=== PATIENT | male | born 1950 | race Caucasian/White ===

== ENCOUNTER 2023-02-19 00:30 | Outpatient (CLI) | payer OTHER, SELFPAY ==
--- NOTE | 2023-02-19 | DI.RAD_ITS ---
Exam(s) XR LUMBAR SPINE COMPLETE EXAM: XR LUMBAR SPINE COMPLETE CLINICAL HISTORY: AUTH# [id number] LOW BACK PAIN M54.50 WITH BILAT RADICULOPATHY. TECHNIQUE: 2D digital imaging was performed. Five views. COMPARISON: No exams were available for comparison FINDINGS: BONES: No fracture or destructive lesion. Vertebral body heights are maintained. facet hypertrophy identified from L3-4 through L5-S1.. No spondylolysis. DISKS: Severe narrowing of the L5-S1 disc space. The remaining disc spaces are maintained. ALIGNMENT: Lumbar spinal alignment is within normal limits. SOFT TISSUE: Normal. IMPRESSION: Severe degenerative disc changes at L5-S1. DATA REPOSITORY: RADIATION DOSE DELIVERED:
--- NOTE | 2023-02-19 | DI.RAD_ITS ---
Exam(s) XR KNEE RT 3V AP,LAT,LAM EXAM: XR KNEE RT 3V AP,LAT,LAM CLINICAL HISTORY: AUTH# [id number] BILAT KNEE PAIN M25.569. TECHNIQUE: 2D digital imaging was performed. Three views. COMPARISON: No exams were available for comparison FINDINGS: BONES: No acute fracture is present. No bony destructive lesion is seen. There is an enthesophyte a t the quadriceps insertion. JOINTS: Narrowing of the medial femoral tibial joint space seen on the weight-bearing view. Mild per iarticular spurring noted, greatest at the patella. Joint effusion is present. SOFT TISSUE: Normal. IMPRESSION: Impression moderate to severe degenerative changes of the medial femoral tibial joint. DATA REPOSITORY: RADIATION DOSE DELIVERED:
--- NOTE | 2023-02-19 | DI.RAD_ITS ---
Exam(s) XR KNEE LT 3V AP,LAT,LAM EXAM: XR KNEE LT 3V AP,LAT,LAM CLINICAL HISTORY: AUTH# [id number] BILAT KNEE PAIN M25.569. TECHNIQUE: 2D digital imaging was performed. Three views. COMPARISON: CR XR KNEE RT 3V AP,LAT,LAM from 02/19/2023 FINDINGS: BONES: No acute fracture is present. No bony destructive lesion is seen. Mild periarticular spurri ng greatest at the patella. Small enthesophyte at quadriceps insertion. JOINTS: The knee is normally aligned. No joint effusion is seen. SOFT TISSUE: Normal. IMPRESSION: Minimal degenerative changes. DATA REPOSITORY: RADIATION DOSE DELIVERED:
== END 2023-02-19 00:50 ==
PROVIDERS: PCP Family Medicine; Visit Provider Physician Assistant
DX: M47.27 Other spondylosis with radiculopathy, lumbosacral region (principal)
CPT/HCPCS: 73562; 72110

== ENCOUNTER 2023-06-14 11:15 | Outpatient (CLI) | payer OTHER, SELFPAY ==
--- NOTE | 2023-06-14 09:45 | DI.RAD_ITS ---
Exam(s) XR HIP PELVIS ADULT BL EXAM: XR HIP PELVIS ADULT BL CLINICAL HISTORY: hip pain. TECHNIQUE: 2D digital imaging was performed. COMPARISON: No exams were available for comparison FINDINGS: 3 views No evidence of pelvic nor hip fracture. However, there is severe advanced degenerative narrowing of the left hip with limitation the joint space superiorly and degenerative subarticular cysts on both s ides the joint. There are also moderate degenerative changes in the opposite-right hip. IMPRESSION: Significant osteoarthritic of the hips bilaterally, more severe on the left side. DATA REPOSITORY: RADIATION DOSE DELIVERED:
== END 2023-06-14 11:16 | disposition home or self-care (01) ==
LOC: DIORS 11:15
PROVIDERS: PCP Family Medicine; Visit Provider Physician Assistant
DX: M16.0 Bilateral primary osteoarthritis of hip (principal)
CPT/HCPCS: 73521

== ENCOUNTER 2023-06-16 03:12 | Outpatient (CLI) | payer OTHER, SELFPAY ==
[2023-06-16 13:40] LABS: HCT 41.8 % (40.0-50.0); HGB 13.7 g/dL (13.5-17.5); MCH 27.4 pg (27.0-33.0); MCHC 32.8 % (32.0-36.0); MCV 84 fL (80-95); MPV 8.9 fL (8.0-11.0); Platelet Count 206 10^3/uL (130-400); RDW 13.7 % (11.8-14.1); RDW-SD 41.8 fL; WBC 5.85 10^3/uL (4.4-10.8)
[2023-06-16 14:05] LABS: Anion Gap 6.9 mmol/L (3-11); BUN 25 mg/dL (7-18); CO2 29.1 mmol/L (21.0-32.0); Calcium 9.3 mg/dL (8.5-10.1); Chloride 105 mmol/L (98-107); Estimated GFR 79.47 (mL/min/1.73m2); Glucose 133 mg/dL (74-106); Sodium 141 mmol/L (136-145)
== END 2023-06-16 03:13 | disposition home or self-care (01) ==
LOC: LBO 03:13
PROVIDERS: Absent Provider Student in an Organized Health Care Education/Training Program; PCP Family Medicine; Visit Provider Student in an Organized Health Care Education/Training Program
DX: M16.12 Unilateral primary osteoarthritis, left hip (principal); M25.552 Pain in left hip; Z01.818 Encounter for other preprocedural examination; Z01.812 Encounter for preprocedural laboratory examination
CPT/HCPCS: 36415; 80048; 85027

== ENCOUNTER 2023-06-22 05:47 | Day surgery (SDC) | payer OTHER, SELFPAY ==
[2023-06-22] VITALS (12 sets, daily range): BP systolic 116–137; BP diastolic 60–86; PULSE 58–79; RESP 15–18; TEMP 36.1–36.5; O2SAT 96–98; BMI 25.7
[2023-06-22] MEDS: Acetaminophen 500 MG TAB 1000 MG PO (06:35)
[2023-06-22] MEDS: Celecoxib 200 MG CAP 400 MG PO (06:35)
[2023-06-22] MEDS: Lactated Ringers 1,000 ML 80 ML IV (07:00)
--- NOTE | 2023-06-22 07:13 | W.ANESPRE ---
General Info Date of Service Date Performed: 06/22/23 Height: 6 ft Weight: 86.183 kg Body Mass Index (BMI): 25.7 Surgical Procedure: Operation Date: 06/22/23 07:50 Proposed Procedure Side Surgeon p Hip Total Hip Anterior, ACTIS Left Brad Benites MD Meds Allergies and Home Medications Allergies Allergy/AdvReac Type Severity Reaction Status Date / Time amlodipine Allergy Unknown Verified 06/22/23 06:11 lisinopril Allergy Unknown Verified 06/22/23 06:11 Sulfa (Sulfonamide Allergy Unknown Verified 06/22/23 06:11 Antibiotics) duloxetine AdvReac Severe Other (See Unverified 06/22/23 06:11 Comment) Home Medication Medication Instructions Recorded melatonin 5 mg capsule 5 mg PO HS 03/11/23 meloxicam 15 mg tablet 15 mg PO DAILY 03/11/23 terazosin 2 mg capsule 2 mg PO QHS 03/11/23 Current Visit Medications: Current Medications Generic Name Dose Route Start Last Admin Trade Name Freq PRN Reason Stop Dose Admin Acetaminophen 1,000 mg 06/22/23 06:00 06/22/23 06:35 Acetaminophen 500 Mg Tab PO 07/22/23 05:59 1,000 mg PREOP GABINO Administration Celecoxib 400 mg 06/22/23 06:00 06/22/23 06:35 Celecoxib 200 Mg Cap PO 07/22/23 05:59 400 mg PREOP GABINO Administration Tranexamic Acid 1,000 mg/ 60 mls @ 360 mls/hr 06/22/23 06:00 Sodium Chloride IV 07/22/23 05:59 PREOP GABINO Ringer's Solution 1,000 mls @ 80 mls/hr 06/22/23 06:00 06/22/23 07:00 IV 07/21/23 23:59 80 mls/hr INFUSION GABINO Administration Cefazolin Sodium/Dextrose 2 gm in 50 mls @ 100 mls/hr 06/22/23 06:00 Ancef Duplex IVPB 07/21/23 23:59 PREOP GABINO IV Miscellaneous Supplies 1 each 06/22/23 06:00 Iv Access IV 07/21/23 23:59 DIRECTED GABINO Sodium Chloride 0 ml 06/22/23 06:00 Normal Saline Flush 10 Ml Syr IV 07/21/23 23:59 PRN PRN Sodium Chloride 0 ml 06/22/23 06:00 Normal Saline 10 Ml Vial IJ 07/21/23 23:59 DIRECTED PRN Sterile Water 0 ml 06/22/23 06:00 Water,Injection,Sterile 10 Ml Vial IJ 07/21/23 23:59 DIRECTED PRN PFSH Active Problems Active Problems: Problem Status Onset Code HTN (hypertension) I10 BPH (benign prostatic hyperplasia) N40.0 JERRI (obstructive sleep apnea) G47.33 Primary osteoarthritis of left hip M16.12 Primary osteoarthritis of right knee M17.11 Surgical History Surgical History (Updated 06/22/23 @ 06:15 by Marilin Felder) Hx of foot surgery L big toe Hx of hand surgery Hx of tonsillectomy Tobacco Smoking/Tobacco Use Status: Current-Occasional Tobacco Type: cigars Alcohol Alcohol Intake: current Alcohol intake frequency: holidays/special occasions only Substance Use Substance use: Never Substance use type: does not use Details: beer occasionally Vital Signs and Lab Results Vital Signs Most Recent Vital Signs in EMR: Most Recent Vital Signs Temp Pulse Resp BP Pulse Ox 36.4 C L 79 18 137/84 98 06/22/23 06:41 06/22/23 06:41 06/22/23 06:41 06/22/23 06:41 06/22/23 06:41 Lab Results Blood Type / Crossmatch: No Data to Display Complete Blood Count: White Blood Count 5.85 10^3/uL (4.4-10.8) 06/16/23 13:34 Red Blood Count 5.00 10^6/uL (4.36-5.78) 06/16/23 13:34 Hemoglobin 13.7 g/dL (13.5-17.5) 06/16/23 13:34 Hematocrit 41.8 % (40.0-50.0) 06/16/23 13:34 Platelet Count 206 10^3/uL (130-400) 06/16/23 13:34 Complete Metabolic Panel: Sodium 141 mmol/L (136-145) 06/16/23 13:34 Potassium 4.0 mmol/L (3.5-5.1) 06/16/23 13:34 Chloride 105 mmol/L (98-107) 06/16/23 13:34 Carbon Dioxide 29.1 mmol/L (21.0-32.0) 06/16/23 13:34 BUN 25 mg/dL (7-18) H 06/16/23 13:34 Creatinine 1.0 mg/dL (0.70-1.30) 06/16/23 13:34 Est GFR (CKD-EPI 2020) 79.47 (mL/min/1.73m2) 06/16/23 13:34 Calcium 9.3 mg/dL (8.5-10.1) 06/16/23 13:34 Glucose 133 mg/dL (74-106) H 06/16/23 13:34 Liver Function Panel: No Data to Display Coagulation Panel: No Data to Display Cardiac Panel: No Data to Display Arterial Blood Gas: No Data to Display Venous Blood Gas: No Data to Display Pancreas Panel: No Data to Display Thyroid Panel: No Data to Display Infectious Disease: No Data to Display Blood Cultures: No Data to Display Toxicology Panel: No Data to Display Anesthesia Assessment and Plan Anesthesia History Personal History: No History of Anesthesia Complications Family History: No Family History of Anesthesia Complications Exercise Tolerance Exercise Tolerance: Metabolic Equivalents<4 Pertinent Negatives Pertinent Negatives: No Symptoms of GERD, No Major Cardiovascular Symptoms or Complaints, No Major Pulmonary Symptoms or Complaints and No History of CVA/TIA Cardiac & Pulmonary Exam Cardiac Exam: Normal S1/S2 Heart Sounds Pulmonary Exam: Clear Bilateral Breath Sounds Implantable Cardiac Device Does patient have a Pacemaker or an ICD?: No Airway Exam Known Difficult Airway: No Mallampati Class: 1 Mouth Opening: Normal (> 3cm) Thyromental Distance: Greater than 3 cm Neck Range of Motion: Full ROM Neck Circumference: Normal Teeth Condition: Normal Dentition (approx 9 teeth left after dentures/partials out) ASA Classification ASA Score: ASA 2 Emergency Case?: No NPO Status NPO Status: NPO Clears >2 hours, Solids >8 hours Anesthesia Plan Resuscitation Status: Full Code Anesthesia Technique: Spinal Anesthesia Airway Planned: Natural Airway Monitors Used: Standard Monitors
--- NOTE | 2023-06-22 07:19 | DSE_ITS ---
Date of service: 06/22/23 Time of Service: 07:24 DS: Diagnosis Discharge Diagnosis (1) Primary osteoarthritis of left hip: Status: Acute Discharge Plan Disposition Patient Disposition: Home Condition: Good Discharge Details Reason For Visit: Left hip DJD Attending Provider: Brad Benites Primary Care Provider: Katie De Jesus Home Meds and New Rx's Prescriptions: New meloxicam 15 mg tablet 15 mg PO DAILY Qty: 30 1RF Rx Instructions: Take one tablet daily for pain and inflammation aspirin 81 mg tablet,delayed release (DR/EC) 81 mg PO BID 30 Days Qty: 60 0RF acetaminophen 500 mg tablet 1,000 mg PO Q8H PRN Qty: 90 0RF Rx Instructions: Take two tablets up to every 8 hours as needed for pain pantoprazole 40 mg tablet,delayed release (DR/EC) 40 mg PO DAILY Qty: 14 0RF dexamethasone 4 mg tablet 4 mg PO DAILY Qty: 2 0RF Rx Instructions: Take one tablet once daily for two days docusate sodium [Colace] 100 mg capsule 100 mg PO BID Qty: 30 0RF oxycodone 5 mg tablet 5 mg PO Q6H PRNQty: 12 0RF Rx Instructions: Take one tablet up to every 6 hours as needed for severe postoperative pain Continued terazosin 2 mg capsule 2 mg PO QHS melatonin 5 mg capsule 5 mg PO HS Discontinued meloxicam 15 mg tablet 15 mg PO DAILY Discharge Instructions Additional Instructions: Total Hip Discharge Instructions Activity: The most important activity is to walk. You should try to take short walks a few times a day. You have no restrictions on movement or positioning, but do not try to force what you do. You will find some stiffness and weakness with hip flexion (lifting your knee). Do not try to strengthen this too early, continue to practice walking and stairs and this will come. - Outpatient physical therapy can be helpful to help return you to a normal gait and improve your flexibility and strength. This can start around 2 weeks. For some patients, it?s not necessary. Usually this is determined at the time of discharge or at the first post-operative visit. - You should wear the OSCAR hose on both legs for 2 weeks. Dressing: Keep the surgical dressing in place for at least one week. After the first week it may be removed and replace with light gauze and tape or nothing. It may get wet after 3 days but avoid soaking the dressing. If it gets wet, just lightly pat dry. It is important to always keep some gauze between skin folds, especially when you are sitting. Spend some time with the wound exposed when you are lying flat as the incision does wrinkle onto itself. Medications: - You should take Tylenol and an anti-inflammatory Meloxicam as your primary pain control medications. If the Meloxicam is too expensive or not covered, please call the office for another alternative (Advil/Ibuprofen or Naproxen/Aleve). - You have been prescribed a stronger pain medication Oxycodone for breakthrough pain, take as needed as prescribed. - You have also been prescribed a stomach acid reduction agent Pantoprozole to help reduce stomach acid and reflux. - You have also been prescribed Decadron to help with post-operative nausea and pain. You will take this for two days starting tomorrow. - You will be taking Aspirin 81mg twice a day for DVT prevention unless instructed otherwise. - If you have constipation you should take Colace (which has been prescribed) or Miralax (which is available [id number]). It takes most people 3-4 days to have a bowel movement. Follow-up: 2 weeks If you have any acute concerns or questions, please do not hesitate to contact the office at [phone]. You may contact Dr. Benites with any questions after hours through the hospital at [phone] or on his cell phone at [phone]. Referrals: Brad Benites MD [ [facility] STAFF PHYSICIAN] - Equipment/Supplies: Walker Activity:: Activity as Tolerated Remove Dressings/Wound Care:: Do Not Remove Shower/Bathe:: 72 hours and Cover Diet:: As Tolerated DS: Summary Time Spent with Patient providing and/or coordinating discharge services: Less than 30 minutes Status at Discharge Functional status at discharge: uses cane/walker Overall status at discharge: patient is progressing back to baseline Mental Status: mental status grossly normal Speech and Movement: speech and movement normal Mood: congruent mood Affect: normal affect Exam Psych Mental Status: mental status grossly normal Speech and Movement: speech and movement normal Mood: congruent mood Affect: normal affect DS: Data Vitals/I&O Vitals and I&O: Vital Signs Temperature 97.5 F L 06/22/23 06:41 Pulse 79 06/22/23 06:41 Pulse Rhythm Regular 06/22/23 06:41 Respiratory Rate 18 06/22/23 06:41 Respiratory Depth Normal 06/22/23 06:41 Blood Pressure 137/84 06/22/23 06:41 Pulse Oximetry 98 06/22/23 06:41 Oxygen Delivery Method Room Air 06/22/23 06:41 Oxygen Flow Rate 0 06/22/23 06:41 Pain Level 9 06/22/23 06:41 Intake & Output 06/21/23 06/21/23 06/22/23 11:59 23:59 11:59 Weight 190 lb 190 lb PFSH All Active Problems HTN (hypertension) (Chronic) BPH (benign prostatic hyperplasia) (Chronic) JERRI (obstructive sleep apnea) (Chronic) Primary osteoarthritis of left hip (Acute) Primary osteoarthritis of right knee (Acute) Surgical History (Updated 06/22/23 @ 06:15 by Marilin Felder) Hx of foot surgery L big toe Hx of hand surgery Hx of tonsillectomy Social History Smoking/Tobacco Use Status: Current-Occasional Tobacco Type: cigars Smoking risk assessment performed?: Yes Alcohol Intake: current Alcohol Intake frequency: holidays/special occasions only Drug use: Never Substance use type: does not use Details: beer occasionally Housing: house Do you feel safe at home: No Do you feel safe in your relationship?: No Additional Social history: unable to assess privatley Time Spent with Patient Time Spent with Patient: <45 minutes Time was spent: ordering medications,tests, procedures, referring, communicating with other health critical care paramedic, care coordination and other
[2023-06-22] MEDS: ceFAZolin 2 GM/50 ML BAG IVPB (07:24)
--- NOTE | 2023-06-22 08:35 | DI.RAD_ITS ---
Exam(s) XR HIP LT IN OR EXAM: XR HIP LT IN OR CLINICAL HISTORY: OA LEFT HIP. TECHNIQUE: 2D and realtime digital imaging was performed. COMPARISON: CR XR HIP PELVIS ADULT BL from 06/14/2023 FINDINGS: Hard copy images show placement of a left hip prosthesis. The alignment appears satisfactory. Please see procedure note for details. Fluoro time: 20.9Seconds RADIATION DOSE DELIVERED: Kar=1.05 mGy
--- NOTE | 2023-06-22 08:46 | ROE_ITS ---
Date of service: 06/22/23 Time of Service: 08:47 Operative Note Operative Note PRE-OP DIAGNOSIS: Left Hip Osteoarthritis POST-OP DIAGNOSIS: same PROCEDURE: Left Anterior Total Hip Arthroplasty with Intraoperative Navigation SURGEON: Brad Benites LIVING ADVISOR: Mine Graham ANESTHESIA TYPE: Spinal Refer to Anesthesia Record ESTIMATED BLOOD LOSS: 150 PATHOLOGY: none sent TOURNIQUET TIME: 0 COMPLICATIONS: None Patient was transported to: PACU Patient's condition: stable Implants: 1. Depuy [place] Acetabular Component, 54mm 2. Depuy Acetabular Liner, 66i54er 3. Depuy Actis Standard Collared Femoral Stem, Size 6 4. Depuy Altrx Ceramic Femoral Head, Size 36+8.5mm Indications: I have seen Rahul in clinic for symptoms of hip arthritis, confirmed with radiographic findings. Rahul has exhausted nonoperative methods and was having significant limitations in daily function and desired better function and less pain. I discussed the technical details of a hip replacement. I explained the risks of the procedure to include, but not limited to, bleeding, infection, jessica n, stiffness, fracture, damage to nerves and vessels, damage to muscles and tendons, loosening, instability, leg length inequality, need for repeat procedure, blood clot and cardiopulmonary demise. Despite these risks, Rahul elected to proceed. Findings: There was significant signs of arthritis throughout the hip with complete loss of cartilage over the femoral head and large osteophytes. Procedure Description: Rahul was greeted in the preoperative holding area where the correct side was identified and marked. The consent was reviewed with the patient and signed. The history and physical was updated. All questions were answered. He was taken back to the operating room. A spinal anesthestic was then administered. The feet were wrapped with cast padding and Coban and then placed into the boot liners and then into the boots. Care was taken to protect the skin and make sure the heels were fully down and the boots were stable. The patient was then positioned onto the HANA table. Both legs were held in a neutral position. SCDs were applied. The patient was then slid down onto a peroneal post. Prophylactic antibiotics in the form of Cefazolin were administered. 1g of Tranxemic Acid was given intravenously within 30 minutes of incision. The left leg was then prepped with Chloraprep and draped in a standard fashion. A second prep with Chloraprep was performed prior to placement of a shower-curtain type drape with Iodine impregnated skin protection. A timeout to confirm correct identity, side and site, procedure, allergies, anesthesia, and medical concerns was performed. An obliquely oriented incision was made starting lateral to the ASIS and running distal over the Tensor Fascia Bonny (TFL) muscle belly toward the fibular head, approximately 10cm. The skin and soft tissue was dissected sharply, through Brittnee?s fascia, and to the fascia of the TFL. With the fascia and superior border of the IT band identified, the fascia was incised with a new knife just above any perforators from the IT band. The TFL muscle belly was bluntly dissected away from the fascia and moved laterally. The fat between TFL and rectus was identified to ensure the dissection was not within the TFL. Blunt dissection created space between abductors and the capsule and retractor was placed over the lateral femoral neck. The fibers of the rectus femoris tendon were identified and these were freed from the anterior capsule. A second cobra retractor was placed around the medial femoral neck. The TFL was further retracted laterally to show the deep fascia. Careful dissection through this layer identified three main crossing vessels of the lateral femoral circumflex. These were cauterized in multiple locations and then cut without any noticeable bleeding. The TFL was further released bluntly from the deep fascia to expose anterior hip capsule and fat The Rell orthopaedic retractor was then placed beneath the TFL and against sartorius and medial soft tissues to protect and retract the soft tissues. A T-capsulotomy was then performed starting at the superior lateral acetabulum and moving distally to the intertrochanteric ridge. These capsular flaps were tagged with a No. 1 Ethibond and elevated from within. The capsular flaps were released to the shoulder of the lateral neck and to the lesser trochanter to give excellent visualization of the proximal femur. A neck osteotomy was performed using an oscillating saw based on preoperative templates. This cut started in the shoulder and of the lateral neck and exited medially. The saw was at all times directed medially to avoid injury to the greater trochanter. Gross traction was applied to the leg and the osteotomy opened. The femoral head was removed with a corkscrew, making sure to protect the TFL on its exit. Traction was released after head removal. This was measured on the back table to determine the starting reamer size. Portions of the rectus obscuring visualization were minimally elevated off the superior acetabulum. An anterior retractor was placed over the anterior wall between capsule and labrum and attached to the Gripper retraction system. The femur was rotated to 90 degrees and medial capsule was fully released until the lesser trochanter was palpable and visible; the femur was returned to 30 degrees. A posterior retractor was placed similarly between capsule and labrum. This provided excellent visualization. The contents of the cotyloid fossa were removed with electrocautery and the labrum was removed with a knife. There was a notable floor osteophyte. There was significant chondromalacia of the superior acetabulum. Acetabular reaming began with a 50mm reamer. This first reaming was directed anterior to posterior and medial to get down to the true floor. This was inspected and reamed until the true floor was reached. The anterior retractor was then released and entry and exit was provided by traction on the capsular flaps. I then reamed sequentially up to a 54mm reamer where good fit was obtained. The larger reamers were oriented based on anatomical reference of the anterior and lateral morrell to ensure proper abduction and anteversion. Positioning and size was confirmed with the fluoroscopy. A 54mm Depuy [place] acetabular component was selected. The acetabulum was reamed around the periphery with the selected acetabular size to prevent a rim fit. The deep tissues were irrigated. The acetabular component was then impacted in a position of about 40-45 degrees of abduction and 15-20 degrees of anteversion, using the patient?s anatomy as the ultimate landmark. Fluoroscopy was used to confirm this. There was excellent international trade compliance manager of the acetabular component and the inserting handle was removed. The acetabular liner, Depuy [id number] polyethylene liner, was inserted and lined up with the tines of the acetabular component. There was no soft tissue interposition. The liner was then impacted into position and confirmed to be well-seated. A portion of the vinay-articular cocktail was then injected around the acetabulum into the capsule and periosteum. This cocktail consisted of 123mg of Ropivacaine, 0.25mg of Epinephrine, 0.04mg of Clonidine, and 15mg of Ketorolac, diluted to 50cc. The leg was rotated to 120 degrees. Any remaining medial capsule was released until the lesser trochanter was easily palpable. A retractor was placed medially. The lateral capsule was further released into the shoulder to allow access to the greater trochanter. A Thompson retractor was placed over the greater trochanter which allowed the trochanter to flip in front of the capsule for excellent exposure. The leg was brought down into maximal extension and 20 degrees of adduction while ensuring there was no impingement on the acetabulum. Any remnant capsule within the trochanter was released. Piriformis and obturator externis were identified and protected. There was excellent access to the proximal femur. The lateral neck remnant was removed with a rongeur. A blunt canal probe was used to identify the canal and trajectory for later broaching. A box osteotome initiated the broach course. A small curved rasp and a curved curette were used to work laterally. Broaching then began with a starter Actis broach. This was inserted manually around the trochanter and into the canal before mallet blows. The broach was seated to a few millimeters below the cut level based on the neck cut and the preoperative template. Sequential broaching was continued with the [employer] pneumatic broaching device until a tight fit was obtained with good rotational control of the femur. A trial standard neck was inserted along with a +8.5 trial head. The leg was brought out of extension and adduction and then reduced with traction and internal rotation. The leg was stable anteriorly in a position of 30 degrees of extension and 90 degrees of external rotation. Fluoroscopy was used to ensure there was no fracture and the stem was seated well. Leg lengths were checked with an AP pelvis and pelvic reference points. [employer] navigation system was used to confirm appropriate positioning and leg length and offset. Once content with the desired offset and leg lengths, the leg was brought back into extension, external rotation and adduction. The periosteum and surrounding tissue was injected with remaining portion of the vinay-articular cocktail. The proximal femur was irrigated as well as the deep tissues. The [employer] Point[employer] standard collared stem, size 6, was then manually inserted into the proximal femur making sure to control rotation. It was then malleted into position with light blows, giving breaks to allow bone expansion and decrease risk of fracture. The selected Depuy Altrx Ceramic Head, size 36+8.5mm, was then placed onto the clean and dry trunnion and secured with impaction onto the tapered fit. The leg was brought back out of extension and adduction and reduced with traction and internal rotation. Stability was confirmed with no shuck at 90 degrees of external rotation and 30 degrees of extension. No impingement through range of motion arc. Final x-ray images were obtained with fluoroscopy to confirm adequate positioning and no intraoperative fracture. The deep tissues were thoroughly irrigated with Surgiphor, betadine solution. This was allowed to sit in the wound for 3 minutes before being thoroughly irrigated out with normal saline. The capsule was then reapproximated with the previously placed Ethibond sutures. The TFL fascia was finally closed with a No. 2 Stratafix, barbed suture. Deep tissues were then reapproximated with 0 Vicryl and a running 2-0 Vicryl. The skin was closed with a running 4-0 Monocryl in a subcuticular fashion. This was reinforced with skin glue. A Mepilex silver dressing was applied. At the end of the case, all counts were correct. Rahul was transferred to the hospital bed without difficulty and suffering no apparent complication. Rahul has a good prognosis. Physical therapy will start today and without restrictions, weight-bearing as tolerated. Aspirin 81mg BID will be used for DVT prophylaxis.
[2023-06-22] MEDS: fentaNYL 100 MCG/2 ML VIAL IVP ×2 (09:20→09:25)
[2023-06-22] MEDS: oxyCODONE 5 MG TAB PO (09:56)
--- NOTE | 2023-06-22 10:42 | PT.INIE ---
PT Notes Visit Reasons: Left hip DJD Physical Therapy Day Surgery Initial Evaluation Date: 06/22/2023 Referring Doctor: YARON Yeboah PT Orders: PT CONSULT: S/P Ortho surgery Precautions: WBAT on the R LE with AD. Patient Profile/Admitting Diagnosis: Patient is a 73-year-old male with degenerative joint disease of the left hip and status post left anterior total hip arthroplasty postoperative day 0. PMHX: All Active Problems?(Updated 06/14/23 @ 10:26 by YARON Norris) Primary osteoarthritis of right knee (Acute) Primary osteoarthritis of left hip (Acute) JERRI (obstructive sleep apnea) (Chronic) BPH (benign prostatic hyperplasia) (Chronic) HTN (hypertension) (Chronic) Social History/Home Situation: Lives with in a private home with 3 steps to enter, rail on one side. Independent with use of a single-point cane prior to surgery although mobility performance has become difficult due to left hip degenerative process. Equipment Owned/DME: [facility] Subjective: Denies headache, chest pain, and lightheadedness throughout session. Reports 4/10 pain and left hip that subsided with ambulation activity. Objective: General Observation: Seated on bedside chair. Mepilex Ag over surgical incision. TEDS to B legs. present throughout session. Mental Status: Alert and oriented x 4 Pain: As above ROM: Right Lower Extremity: Hip flexion WFL. Hip abduction WFL. Knee flexion WFL. Ankle dorsiflexion WFL. Ankle plantarflexion WFL. Left Lower Extremity: Hip flexion WFL. Hip abduction WFL. Knee flexion WFL. Ankle dorsiflexion WFL. Ankle plantarflexion WFL. Strength: Right Lower Extremity: Hip flexors 5/5. Hip abductors 5/5. Knee flexors 5/5. Knee extensors 5/5. Ankle dorsiflexors 5/5. Ankle plantarflexors 5/5. Left Lower Extremity:Hip flexors 4/5. Hip abductors 4/5. Knee flexors 5/5. Knee extensors 4/5. Ankle dorsiflexors 5/5. Ankle plantarflexors 5/5. Sensation: Intact as to pain and light pressure in bilateral lower extremities. Bed Mobility/Transfers: Sit to stand contact-guard assist with verbal cueing provided to use B hands for support Stand to sit contact-guard assist with verbal cueing provided to use B hands for support Bed to chair contact-guard assist with verbal cueing provided to use B hands for support Gait: Facilitated safe and correct level surface ambulation using FWW with contact guard assist with patient covering 150 feet of level surface ambulation. Patient initially demonstrated some increased adduction at the hip and tibial internal rotation at the knee causing the L LE to advance forward and towards midline. Patient was instructed on increasing step width to avoid the R foot from tripping on the L heel which patient was able to correct during the last half of his walk. Stairs: Guided patient with step-to gait pattern on 6 x 4-inch steps and 4 x 6-inch steps while holding onto B rails requiring only contact guard assist. Balance: Static Sitting: Normal Dynamic Sitting: Normal Static Standing: Fair Dynamic Standing: Fair Special Tests: Mobility Limitations Standardized Measure [facility] AM-PAC 6 clicks Basic Mobility Inpatient Short Form: Raw Score: 21 CMS Score: 29% deficit Informed Consent/Education: Patient instructed in purpose of PT consult. Packet containing NOAH exercise protocol has been given to patient. Trained patient with correct performance of exercises below to maximize motor control, joint flexibility, soft tissue extensibility of the [] hip musculature to facilitate return to independent functional mobility performance. Access Code: [email or web address] URL: [email or web address] Date: 06/23/2023 Prepared by: Nicolette Erickson Exercises - Gluteal Sets - 1 x daily - 7 x weekly - 1 sets - 10 reps - 5 hold - Supine Heel Slide - 1 x daily - 7 x weekly - 1 sets - 10 reps - 5 hold - Supine Ankle Pumps - 1 x daily - 7 x weekly - 1 sets - 10 reps - 5 hold - Seated March - 1 x daily - 7 x weekly - 1 sets - 10 reps - 5 hold - Seated Long Arc Quad - 1 x daily - 7 x weekly - 1 sets - 10 reps - 5 hold Assessment: Patient requires use of a front wheel walker for all mobility ADL performance to maximize independence and reduce fall risk. Now able to stand more erect, able to correct excessive hip abduction and tibial internal rotation during heel strike on the left when cued. Patient presents with clinical signs and symptoms consistent with current/admitting diagnoses that have resulted to mobility limitations, gait instability, generalized weakness, and impairment of motor control as demonstrated by the following impairment level findings: 1. Decreased strength to left hip major muscle groups 2. Impaired standing balance Impairments are contributing to the following functional limitations: 1. Inability to safely ambulate without assistive device 2. Increase completion time for mobility ADL performance 3. Increased fall risk Patient is assessed as a 15064 moderate complexity based on the following: History: 73-year-old female with impairment level findings, functional limitations, and past medical history as indicated above Examination: Demonstrable impairment in strength, balance, and mobility level with underlying impairments and functional limitations as documented above Presentation: Evolving Decision Makin moderate complexity Goals: N/A. PT evaluation and 1-2 treatment sessions only for functional mobility training using recommended AD and for HEP instruction. Plan of Care/Treatment Plan: N/A. PT evaluation and 1-2 treatment session only for functional mobility training using recommended AD and for HEP instruction. DISCHARGE RECOMMENDATIONS: Home when medically cleared by orthopedic surgeon. Recommend outpatient PT services in order to optimize functional mobility outcomes and facilitate return to independent community ambulation without an assistive device. TREATMENT CODE/TIME: 7162 x 20 minutes for 1 unit, 34132 x 12 minutes for 1 unit beginning at 10:42 AM. Thank you for the opportunity to participate in the care of this patient. Nicolette Erickson PT, DPT, CLT [facility] [place], [place]
--- NOTE | 2023-06-22 11:58 | W.ANESPOSTOP ---
Postoperative Evaluation Date, Time and Location Date Performed: 06/22/23 Time Performed: 11:58 Patient Location: Day Surgery Unit Vital Signs Most Recent Imported Vital Signs: Most Recent Vital Signs Temp Pulse Resp BP Pulse Ox 36.1 C L 62 16 123/76 98 06/22/23 11:13 06/22/23 11:13 06/22/23 11:13 06/22/23 11:13 06/22/23 11:13 Pain Score Most Recent Pain Score: Most Recent Pain Score Pain Level [Lateral] 4 06/22/23 10:19 Pain Level [Left Lateral] 4 06/22/23 09:42 Pain Level 3 06/22/23 11:13 Assessment Mental Status: Awake (Alert & Oriented to Patient Baseline) Airway and Respiratory Function: Patent airway with normal (patient baseline) respiratory exam Cardiovascular Function: Hemodynamically Stable Hydration Status: Adequately Hydrated Nausea & Vomiting: No Nausea or Vomiting Pain: Pt. Denies Any Pain Peripheral Nerve Block: Patient did not receive a nerve block
== END 2023-06-22 12:00 | disposition home or self-care (01) ==
PROVIDERS: PCP Family Medicine; Visit Provider Student in an Organized Health Care Education/Training Program
PROC: (CPT 27130; principal; 2023-06-22 07:30)
DX: M16.12 Unilateral primary osteoarthritis, left hip (principal); G47.33 Obstructive sleep apnea (adult) (pediatric); I10 Essential (primary) hypertension; N40.0 Benign prostatic hyperplasia without lower urinary tract symptoms
CPT/HCPCS: 27130; 20985; 97162; 97530; 73501; J0690; J1100; J2001; J2250; J2405; J3010

== ENCOUNTER 2023-07-05 12:19 | Outpatient (CLI) | payer OTHER, SELFPAY ==
--- NOTE | 2023-07-05 08:45 | DI.RAD_ITS ---
Exam(s) XR HIP LT COMPLETE AP PELVIS EXAM: XR HIP LT COMPLETE AP PELVIS CLINICAL HISTORY: 1st post op s/p L NOAH. TECHNIQUE: 2D digital imaging was performed. Two images were obtained. AP and lateral views were ob tained. COMPARISON: CR XR HIP PELVIS ADULT BL from 06/14/2023 XA XR HIP LT IN OR from 06/22/2023 FINDINGS: BONES: There are stable post operative changes of a left total hip replacement present. No fracture or dislocation. JOINTS: The orthopedic hardware is in good position. No evidence of hardware loosening. Mild degene rative changes are seen in the right hip. SOFT TISSUE: Normal. IMPRESSION: Stable postoperative changes. DATA REPOSITORY: RADIATION DOSE DELIVERED:
== END 2023-07-05 12:20 | disposition home or self-care (01) ==
LOC: DIORS 12:20
PROVIDERS: PCP Family Medicine; Visit Provider Student in an Organized Health Care Education/Training Program
DX: Z96.642 Presence of left artificial hip joint (principal); Z47.1 Aftercare following joint replacement surgery
CPT/HCPCS: 73502

== ENCOUNTER 2024-06-26 14:28 | Outpatient (CLI) | payer OTHER, SELFPAY ==
--- NOTE | 2024-06-26 08:45 | DI.RAD_ITS ---
Exam(s) XR HIP LT AP LAT ONLY EXAM: XR HIP LT AP LAT ONLY CLINICAL HISTORY: F/U LEFT NOAH. TECHNIQUE: 2D digital imaging was performed. COMPARISON: CR XR HIP LT COMPLETE AP PELVIS from 07/05/2023 FINDINGS: Two views There is stable position alignment of the components of the left hip prosthesis. No fracture or loos ening evident. IMPRESSION: Stable satisfactory appearance left hip prosthesis. DATA REPOSITORY: RADIATION DOSE DELIVERED:
== END 2024-06-26 14:29 | disposition home or self-care (01) ==
LOC: DIORS 14:28
PROVIDERS: PCP Family Medicine; Visit Provider Student in an Organized Health Care Education/Training Program
DX: Z96.642 Presence of left artificial hip joint (principal); Z47.1 Aftercare following joint replacement surgery
CPT/HCPCS: 73502